=== PATIENT | female | born 1930 | race Caucasian/White ===

== ENCOUNTER 2016-12-08 20:22 | Emergency (ER) | payer MEDICARE, OTHER ==
[~2016-12-08] VITALS: Ht 152.4 cm; Wt 54.2 kg
[~2016-12-08 20:22] MED LIST: AMLO5TAB2 PO; CEFD300C37 PO
[2016-12-08] MEDS ORDERED: SODIUM CHLORIDE FLUSH 10ML SYR IVF ONE (21:00)
[2016-12-08] MEDS ORDERED: SODIUM CHLORIDE 0.9% 1,000ML IVBOLUS ONE (21:00)
[2016-12-08 21:29] LABS: ASPARTATE AMINO TRANSFERASE 66 U/L (15-37); BLOOD UREA NITROGEN 13 mg/dL (7-18)
[2016-12-08] MEDS ORDERED: LISINOPRIL 10 MG TABLET PO SCH (21:30)
[2016-12-08] MEDS ORDERED: OMNIPAQUE 350 MG/ML, 100ML BOTTLE ONE (22:09)
[2016-12-08 23:04] VITALS: BP 155/68
== END 2016-12-08 23:53 | disposition home or self-care (01) ==
LOC: ED 21:49
DX: K57.31 Diverticulosis of large intestine without perforation or abscess with bleeding (principal); K80.20 Calculus of gallbladder without cholecystitis without obstruction; I10 Essential (primary) hypertension; Z87.891 Personal history of nicotine dependence
CPT/HCPCS: 36415; 74177; 80053; 81001; 83690; 85025; 87086; 96360; 96361; 99285; J7030; Q9967; 87077